=== PATIENT | female | born 1985 | race Caucasian/White ===

== ENCOUNTER 2021-11-05 16:29 | Emergency (ER) | payer OTHER ==
[~2021-11-05 16:29] MED LIST: BACLOFEN 10MG T10 MG PO; KEFLEX500 MG PO; NAPROXEN500 MG PO
== END 2021-11-05 18:16 | disposition left against medical advice (07) ==
LOC: FER 16:29
DX: G43.909 Migraine, unspecified, not intractable, without status migrainosus (principal); F17.210 Nicotine dependence, cigarettes, uncomplicated; Z53.29 Procedure and treatment not carried out because of patient's decision for other reasons; Z28.310 Unvaccinated for COVID-19
CPT/HCPCS: 96372; 99282; J1100; J1885